=== PATIENT | female | born 1995 | race Caucasian/White ===

== ENCOUNTER 2016-08-18 10:56 | Emergency (ER) | payer OTHER, MEDICAID ==
[~2016-08-18 10:56] MED LIST: PRENCAP17 PO
[2016-08-18 10:58] VITALS: BP 136/73; PULSE 97; RESP 15; TEMP 98.7; O2SAT 98
[2016-08-18 11:08] VITALS: RESP 20
[2016-08-18] MEDS ORDERED: AMOX875T PO (12:23)
--- NOTE | 2016-08-18 12:24 | PD ---
HPI Chief Complaint: ENT Complaint Time Seen by Provider: 11:35 Travel History International Travel<30 days: No Contact w/Intl Traveler<30days: No Traveled to known affect area: No History of Present Illness HPI Is a 21-year-old woman who presents to the emergency department 30 weeks complaining of right ear pain that started today. She'll cough cold congestion symptoms. No fevers. Said trouble with your pain in the past. Symptoms started yesterday. She is not taking anything. She feels otherwise well. History Past Medical History Medical History: Denies Significant Hx : 1 Past Surgical History Surgical History: No Previous Surgery Social History Alcohol Use: No Tobacco Use: No Allergies-Medications (Allergen,Severity, Reaction): Coded Allergies: No Known Allergies (Verified , 08/18/16) Reported Meds & Prescriptions Reported Meds & Active Scripts Active Prenate Mini 29-0.6-0.4-350 mg ( Without A W/ Fe Carbo) 1 Cap Cap 1 Tab PO DAILY Review of Systems Except as stated in HPI: all other systems reviewed are Neg Physical Exam Narrative GENERAL: Well-appearing 21 year-old woman, no acute distress. SKIN: Focused skin assessment warm/dry. HEENT: Right eardrum is erythematous and dull and retracted. Left TMs normal. Throat so some tonsillar hypertrophy but no evidence of exudates or erythema. NECK: No significant adenopathy. HEAD: Atraumatic. Normocephalic. CARDIOVASCULAR: Regular rate and rhythm. No murmur appreciated. RESPIRATORY: No accessory muscle use. Clear to auscultation. Breath sounds equal bilaterally. GASTROINTESTINAL: Abdomen is gravid soft, no tenderness. MUSCULOSKELETAL: No obvious deformities. No edema. NEUROLOGICAL: Awake and alert. No obvious cranial nerve deficits. Motor grossly within normal limits. Normal speech. PSYCHIATRIC: Appropriate mood and affect; insight and judgment normal. Data Data Last Documented VS Vital Signs Date Time Temp Pulse Resp B/P Pulse Ox O2 Delivery O2 Flow Rate FiO2 08/18/16 11:19 18 08/18/16 10:58 98.7 97 136/73 98 MDM Medical Decision Making Medical Screen Exam Complete: Yes Emergency Medical Condition: Yes Differential Diagnosis Effusion, otitis media, other Narrative Course 21 year-old woman with an acute otitis media, looks well. No fevers. She has a viral prodrome with it. This is likely viral. She is 30 weeks . No related symptoms. Recommend watch and wait antibiotics, Tylenol for pain. Diagnosis Primary Impression: Acute otitis media Additional Instructions: Use acetaminophen as needed for pain. Follow with your office rental clerk in the next week. If you're not better in 48 hours, or if you are worsening in the next 24, or if he develop fever, take antibiotic says prescribed. Med/Other Pt SpecificInfo: Prescription(s) given Scripts Amoxicillin 875 Mg Inb345 Mg PO BID 7 Days Ref 0 Prov:Randall Phan MD 08/18/16 Disposition: DISCHARGE HOME Condition: Stable Randall Phan MD August 18, 2016 12:24
[2016-09-08] MEDS ORDERED: PREN1CAP20 (14:37)
[2016-09-22] MEDS ORDERED: CEPH-460 PO (10:08)
== END 2016-08-18 12:29 | disposition home or self-care (01) ==
LOC: NEPD 10:56
DX: H66.91 Otitis media, unspecified, right ear (principal); Z3A.30 30 weeks gestation of pregnancy
CPT/HCPCS: 99283

== ENCOUNTER 2016-10-17 03:16 | Inpatient (IN) | payer OTHER, MEDICAID ==
[2016-10-17] VITALS (31 sets, daily range): BP systolic 97–125; BP diastolic 34–90; PULSE 68–118; RESP 16–20; TEMP 97.4–98.7
[~2016-10-17 03:16] MED LIST changes: +PREN1CAP20; -PRENCAP17 PO
[2016-10-17] MEDS ORDERED: LACTATED RINGER'S 1000 ML INJ 1,000 ML IV SCH (04:09)
[2016-10-17] MEDS ORDERED: LACTATED RINGER'S 1000 ML INJ 1,000 ML IV PRN (04:09)
[2016-10-17] MEDS ORDERED: LIDOCAINE HCL 1% 50 ML VIAL INFIL PRN (04:15)
[2016-10-17] MEDS ORDERED: OXYTOCIN 30 UNITS-500ML PREMIX 500 ML IV ONE (04:15)
[2016-10-17] MEDS ORDERED: MINERAL OIL 10 ML VIAL TOPICAL PRN (04:15)
[2016-10-17] MEDS ORDERED: CITRIC ACID-SODIUM CITRATE LIQ 30 ML UDC PO SCH (04:15)
[2016-10-17] MEDS ORDERED: SODIUM CHLORID 0.9% 500 ML INJ 500 ML IV PRN (04:15)
[2016-10-17] MEDS ORDERED: LIDOCAINE HCL 1% 50 ML VIAL I-DERMAL PRN (04:15)
[2016-10-17] MEDS ORDERED: SODIUM CHLOR 0.9% 1000 ML INJ 1,000 ML IV PRN (04:29)
--- NOTE | 2016-10-17 04:35 | PD ---
HPI Chief Complaint contractions Date Seen: Oct 17, 2016 Time Seen: 04:20 (Preet Sky MD R2) Travel History International Travel<30 Days: No Contact w/Intl Traveler<30Days: No (Preet Sky MD) History of Present Illness HPI 21 year old at 38/1 weeks gestation presents with reported contractions every 5 mins. She has no gush of fluid. She has spotting. No headache, blurry vision, chest pain, shortness of breath, epigastric pain, or new edema. She is GBS negative. She is up to date on care. No complications in this . (Preet Sky MD) History Past Medical History Narrative Medical None (Preet Sky MD) Obstetric History Obstetric History [facility] No complications in Prenatals up to date GBS negative (Preet Sky MD) Past Surgical History Narrative Surgical None (Preet Sky MD) Family History Narrative Family History None significant (Preet Sky MD) Social History Alcohol Use: No Tobacco Use: No Substance Abuse: No (Preet Sky MD) Allergies-Medications (Allergen,Severity, Reaction): Coded Allergies: No Known Allergies (Verified , 10/14/16) Home Meds Reported Medications W/O Vit A W/ Fe Carbo (Prenate Mini 18-0.6-0.4-350 mg)1 Cap Cap 09/08/16 Discontinued Scripts Amoxicillin 500 Mg Rrh368 Mg PO TID #7 CAP Ref 0 Prov:Jack Vasquez MD 10/09/16 Without A W/ Fe Carbo (Prenate Mini 29-0.6-0.4-350 mg)1 Cap Cap1 Tab PO DAILY #30 BOTTLE Ref 11 Prov:Ingrid Sarkar 03/10/16 Review of Systems Except as stated in HPI: all other systems reviewed are Neg (Preet Sky MD R2) Physical Exam Narrative GENERAL: Well-nourished, well-developed patient. SKIN: Warm and dry. HEAD: Normocephalic and atraumatic. EYES: No scleral icterus. No injection or drainage. ENT: No nasal drainage noted. Mucous membranes pink. Airway patent. NECK: Supple, trachea midline. No JVD. CARDIOVASCULAR: Regular rate and rhythm without murmurs, gallops, or rubs. RESPIRATORY: Breath sounds equal bilaterally. No accessory muscle use. ABDOMEN/GI: Abdomen soft, non-tender, bowel sounds present, no rebound, no guarding Gravid to 38 weeks size GENITOURINARY: External Genitalia: intact and normal in appearance Dilatation: 3-4 cm Effacement: 100% Station: -2 Presentation: vertex Membranes: bulging Uterine Contractions: uterine irritability FHT's: Category: 1 Baseline: 130's-140's Reactive: yes Variability: moderate Decels: none EXTREMITIES: No cyanosis or edema. BACK: Nontender without obvious deformity. No CVA tenderness. NEUROLOGICAL: Awake and alert. Motor and sensory grossly within normal limits. Five out of 5 muscle strength in all muscle groups. Normal speech. (Preet Sky MD R2) Data Data Vital Signs Reviewed: Yes Orders Ob (2e) Additional Admit Info (10/17/16 03:55) Admit To Inpatient (10/17/16 ) Code Status (10/17/16 04:09) Vital Signs (Adult) .Per protocol (10/17/16 04:09) Activity Oob Ad Lynnette (10/17/16 04:09) Heart (10/17/16 04:09) Amnioinfusion (10/17/16 04:09) Urinary Catheter Management .ONCE (10/17/16 04:09) Diet Liquid (10/17/16 Breakfast) Lactated Ringer's 1000 Ml Inj (Lr 1000 M (10/17/16 04:09) Lactated Ringer's 1000 Ml Inj (Lr 1000 M (10/17/16 04:09) Sodium Chlorid 0.9% 500 Ml Inj (Ns 500 M (10/17/16 04:15) Sodium Chlor 0.9% 1000 Ml Inj (Ns 1000 M (10/17/16 04:29) Lidocaine 1% Inj (50 Ml) (Xylocaine 1% I (10/17/16 04:15) Citric Acid-Sodium Citrate Liq (Bicitra (10/17/16 04:15) Fentanyl Inj (Fentanyl Inj) (10/17/16 04:15) Fentanyl Inj (Fentanyl Inj) (10/17/16 04:15) Complete Blood Count With Diff (10/17/16 04:09) Hold Clot (10/17/16 04:09) Abo/Rh Blood Type (10/17/16 04:09) Resp Oxygen Non Rebreathe Mask (10/17/16 ) ^ Epidural / Intrathecal Infus (10/17/16 04:09) Oxytocin 30 Units-500ml Premix (Pitocin (10/17/16 04:15) Lidocaine 1% Inj (50 Ml) (Xylocaine 1% I (10/17/16 04:15) Light Mineral Oil (Muri-Lube Oil) (10/17/16 04:15) Inpatient Certification (10/17/16 ) (Preet Sky MD R2) [facility] Medical Record Reviewed: Yes Interpretation(s) 21 year old at 38/1 weeks gestation presents with contractions every 5 mins by report, found to be 3-4 cm dilated, 100% effaced, -2 station, bulging membranes. - Admit to labor and delivery. - Continuous monitoring - Liquid diet now - LR at 125 mls/hr - Fentanyl for pain management - CBC, ABO/RH, Hold clot - Epidural when pain significant Discussed with Dr. Patel (Preet Sky MD R2) Attending Attestation The exam, history, and the medical decision-making described in the above note were completed with the assistance of the resident provider. I reviewed and agree with the findings presented. I attest that I had a [id number] encounter with the patient on the same day, and personally performed and documented my assessment and findings in the medical record. (Luis Armando Patel MD) Preet Sky MD R2 Oct 17, 2016 04:35 Luis Armando Patel MD Oct 17, 2016 04:44
[2016-10-17 05:04] LABS: AUTOMATED NEUTROPHIL # 10.1 TH/MM3 (1.8-7.7); BASOPHIL % 0.3 % (0.0-2.0); EOSINOPHIL % 0.3 % (0.0-4.0); HEMO FLAGS DIFF FINAL; LYMPH % 14.9 % (9.0-44.0); LYMPHOCYTE # 1.9 TH/MM3 (1.0-4.8); MEAN CORPUSCULAR HEMOGLOBIN 29.6 PG (27.0-34.0); MEAN CORPUSCULAR HGB CONC 33.2 % (32.0-36.0); MONO % 6.1 % (0.0-8.0); NEUT % 78.4 % (16.0-70.0); PLATELET COUNT 185 TH/MM3 (150-450); RED BLOOD COUNT 4.16 MIL/MM3 (4.00-5.30); RED CELL DISTRIBUTION WIDTH 13.7 % (11.6-17.2); WHITE BLOOD COUNT 12.9 TH/MM3 (4.0-11.0)
[2016-10-17] MEDS ORDERED: fentaNYL 2MCG-BUPIV 0.125% INJ 100 ML ONE (05:34)
--- NOTE | 2016-10-17 07:32 | PD.LABORPN ---
Subjective Subjective 21 YO at 38/1 weeks in labor, AROM at 0740 hours with clear fluid noted, 8- 9, 100%, 0 station, vertex. Epidural for pain control, GBS neg, with Category 1 tracing. Objective Vital Signs Vital Signs Date Time Temp Pulse Resp B/P Pulse Ox O2 Delivery O2 Flow Rate FiO2 10/17/16 06:45 121/68 10/17/16 06:45 80 10/17/16 06:30 18 10/17/16 06:30 75 119/73 10/17/16 06:15 83 125/83 10/17/16 06:03 76 110/68 10/17/16 06:00 112/71 10/17/16 05:57 74 114/69 10/17/16 05:54 116/76 10/17/16 05:53 118/72 10/17/16 05:50 84 10/17/16 05:45 20 10/17/16 05:43 79 122/77 10/17/16 05:34 20 10/17/16 05:00 20 Objective Pelvic Exam: Cervix: open Dilatation: 8-9 Effacement: 100 Station: 0 Presentation: vtx Membranes: AROM at 0740 hours with clear fluid noted Uterine Contractions: 5 mins apart FHT's: Category: 1 Baseline: 130 Reactive: yes Variability: moderate Decels: 0 Assessment/Plan Assessment and Plan 21 YO laboring with AROM at 0740, 8-9/100/0, vertex with category 1 tracing 1. IUP - Category 1 tracing w/ reassuring FHTs - AFVSS - Justice 5 mins apart - Epidural for pain control - GBS neg - Continue to monitor Bhaskar Dumsa MD R1 Oct 17, 2016 07:32
[2016-10-17] MEDS ORDERED: WITCH HAZEL 50%/GLYCERIN 12.5% 40 PAD JAR TOPICAL PRN (10:30)
[2016-10-17] MEDS ORDERED: ALUMINUM/MAGNESIUM/SIMETH 30 ML CUP PO PRN (10:30)
[2016-10-17] MEDS ORDERED: ZOLPIDEM TARTRATE 5 MG TAB PO PRN (10:30)
[2016-10-17] MEDS ORDERED: ONDANSETRON ODT 4 MG TAB PO PRN (10:30)
[2016-10-17] MEDS ORDERED: BENZOCAINE 20% TOPICAL SPRAY 60 ML CAN TOPICAL PRN (10:30)
[2016-10-17] MEDS ORDERED: DOCUSATE SODIUM 50 MG/SENNA 8.6 MG TAB PO PRN (10:30)
[2016-10-17] MEDS ORDERED: ACETAMINOPHEN 325 MG TAB PO PRN (10:30)
[2016-10-17] MEDS ORDERED: SODIUM CHLORIDE 0.9% FLUSH 10 ML FLUSH IV FLUSH PRN (10:30)
--- NOTE | 2016-10-17 10:38 | PD.OB.DELI ---
Anesthesia: Epidural Episiotomy: None Vaginal Delivery: Normal Presentation: Occiput anterior, Vertex Nuchal Cord: None Delayed cord clamping (45 sec): Yes Infant: Male One Minute : 9 Five Minute : 9 Weight: 3430 grams Placenta: Spontaneous delivery Laceration: Vaginal laceration, 2 deg Repair: Chromic running Additional Information 21 YO G1 now P1 at 38/1 weeks with normal placenta delivery by Dr Dumas. 2nd degree vaginal wall lacerations at 3-5 O'clock and 7-8 o'clock positions repaired with chromic running sutures by Dr Sotelo and assisted by Dr Dumas. EBL 300 cc. (Bhaskar Dumas MD R1) Collaborating MD Comments supervised. Left sidewall laceration repaired by myself with 2-0 chromic. I supervised repair by Dr Dumas of bilateral periurethral lacerations due to bleeding. (Judit Sotelo MD) Bhaskar Dumas MD R1 Oct 17, 2016 10:38 Judit Sotelo MD Oct 17, 2016 17:15
[2016-10-17] MEDS ORDERED: DIPHTH/TETANUS/ACEL PERTUSSIS (BOOSTER) 0.5 ML VIAL/PFS IM ONE (16:00)
[2016-10-17] MEDS ORDERED: MEASLES, MUMPS, RUBELLA VACCINE 0.5 ML VIAL SQ ONE (16:00)
[2016-10-17] MEDS: IBUPROFEN 600 MG TAB PO PRN (21:02)
[2016-10-18] MEDS: IBUPROFEN 600 MG TAB PO PRN ×3 (03:09→20:49)
[2016-10-18 08:30] VITALS: BP 108/67; PULSE 85; RESP 17; TEMP 97.9
--- NOTE | 2016-10-18 08:47 | HHI.OB ---
Subjective Post Day: 1 Remarks day #1. AFVSS overnight. Pain well-controlled. Decreased lochia. Denies dysuria. No breast tenderness. She is feeding the baby via breast. Appetite good. No nausea or vomiting. Endorses flatus. No bowel movement. Ambulating well. Denies calf pain, shortness of breath, or cough. Otherwise, she is doing well this morning and has no other complaints. Objective Vitals/I&O Vital Signs Date Time Temp Pulse Resp B/P Pulse Ox O2 Delivery O2 Flow Rate FiO2 10/18/16 04:09 16 10/17/16 20:00 105/71 10/17/16 20:00 98.7 87 20 10/17/16 12:45 76 16 108/62 10/17/16 12:45 98.6 10/17/16 11:00 20 10/17/16 10:46 118 107/34 10/17/16 10:30 20 10/17/16 10:16 93 114/90 10/17/16 10:15 20 10/17/16 10:00 91 124/80 10/17/16 10:00 20 10/17/16 09:45 71 101/88 10/17/16 09:45 20 10/17/16 09:31 81 106/61 10/17/16 09:30 20 10/17/16 09:30 98.2 10/17/16 09:15 97 118/68 Objective Remarks GENERAL: Well-nourished, well-developed patient. CARDIOVASCULAR: Regular rate and rhythm without murmurs, gallops, or rubs. RESPIRATORY: Breath sounds equal bilaterally. No accessory muscle use. ABDOMEN/GI: Abdomen soft, non-tender. Fundus: Firm, non-tender at umbilicus. GENITOURINARY: Light to moderate bleeding. EXTREMITIES: No cyanosis or edema, non-tender, without signs of DVT. Medications and IVs Current Medications Medications (Trade) Dose Ordered Sig/Amy Route Start Time Stop Time Status Last Admin (NS Flush) 2 ml BID IV FLUSH 10/17/16 21:00 (NS Flush) 2 ml UNSCH PRN IV FLUSH 10/17/16 10:30 (Tylenol) 650 mg Q4H PRN PO 10/17/16 10:30 (Motrin) 600 mg Q6H PRN PO 10/17/16 10:30 10/18/16 03:09 (Americaine 20% Top Spr) 1 spray Q4H PRN TOPICAL 10/17/16 10:30 10/17/16 20:58 (Tucks Pads) 1 applic QID PRN TOPICAL 10/17/16 10:30 10/17/16 20:58 (Huyen-Colace) 2 tab Q12H PRN PO 10/17/16 10:30 (Ambien) 5 mg HS PRN PO 10/17/16 10:30 (Mag-Al Plus Susp Liq) 15 ml Q8H PRN PO 10/17/16 10:30 (Zofran Odt) 4 mg Q6H PRN PO 10/17/16 10:30 Assessment/Plan Assessment and Plan 21y/o who is PPD#1 s/p . -Continue routine care. -Percocet and Motrin PRN pain. -Encouraged OOB. Advised pelvic rest for 6 wks. -Will need a f/u appt. within 6 wks. -D/c in 1-2 more days. dw OB attending Fei Ashford MD R1 Oct 18, 2016 08:47
[2016-10-18] MEDS: SODIUM CHLORIDE 0.9% FLUSH 10 ML FLUSH IV FLUSH SCH ×2 (10:44→21:00)
[2016-10-18 20:45] VITALS: BP 100/60; PULSE 80; RESP 18; TEMP 98.3
[2016-10-19] MEDS ORDERED: IBUP-232 PO (06:40)
[2016-10-19] MEDS ORDERED: SENN1TAB PO (06:40)
--- NOTE | 2016-10-19 06:40 | HHI.DCPOC ---
Discharge Care Plan Diagnosis: (1) Report Symptoms to Your Doctor -Temperature above 100.5 degrees -Redness, of incision or excessive or foul smelling drainage -Unusual pain or calf pain -Increased vaginal bleeding -Painful or difficulty urinating -Feelings of extreme sadness or anxiety after 2 weeks Goals to Promote Your Health * To prevent worsening of your condition and complications * To maintain your health at the optimal level Directions to Meet Your Goals Take your medications as prescribed Follow your dietary instruction Follow activity as directed Ensure plenty of rest for recovery Drink fluids for hydration Keep your appointments as scheduled Take your immunizations and boosters as scheduled If your symptoms worsen call your PCP, if no PCP go to Urgent Care Center or Emergency Room Smoking is Dangerous to Your Health. Avoid second hand smoke Call the 24-hour crisis hotline for domestic abuse at Fei Ashford MD R1 Oct 19, 2016 06:40
--- NOTE | 2016-10-19 07:47 | HHI.OB ---
Subjective Post Day: 2 Remarks day #2. AFVSS overnight. Pain well controlled. Decreased lochia. Denies dysuria. No breast tenderness. She is feeding the baby via breast. Appetite good. No nausea or vomiting. Endorses flatus. No bowel movement. Ambulating well. Denies calf pain, shortness of breath, or cough. Otherwise, she is doing well this morning and has no other complaints. Objective Vitals/I&O Vital Signs Date Time Temp Pulse Resp B/P Pulse Ox O2 Delivery O2 Flow Rate FiO2 10/18/16 20:45 98.3 10/18/16 20:45 80 18 100/60 10/18/16 08:30 97.9 85 17 108/67 Objective Remarks GENERAL: Well-nourished, well-developed patient. CARDIOVASCULAR: Regular rate and rhythm without murmurs, gallops, or rubs. RESPIRATORY: Breath sounds equal bilaterally. No accessory muscle use. ABDOMEN/GI: Abdomen soft, non-tender. Fundus: Firm, non-tender at umbilicus. GENITOURINARY: Light to moderate bleeding. EXTREMITIES: No cyanosis or edema, non-tender, without signs of DVT. Medications and IVs Current Medications Medications (Trade) Dose Ordered Sig/Amy Route Start Time Stop Time Status Last Admin (NS Flush) 2 ml BID IV FLUSH 10/17/16 21:00 10/18/16 10:44 (NS Flush) 2 ml UNSCH PRN IV FLUSH 10/17/16 10:30 (Tylenol) 650 mg Q4H PRN PO 10/17/16 10:30 (Motrin) 600 mg Q6H PRN PO 10/17/16 10:30 10/18/16 20:49 (Americaine 20% Top Spr) 1 spray Q4H PRN TOPICAL 10/17/16 10:30 10/17/16 20:58 (Tucks Pads) 1 applic QID PRN TOPICAL 10/17/16 10:30 10/17/16 20:58 (Huyen-Colace) 2 tab Q12H PRN PO 10/17/16 10:30 10/18/16 20:50 (Ambien) 5 mg HS PRN PO 10/17/16 10:30 (Mag-Al Plus Susp Liq) 15 ml Q8H PRN PO 10/17/16 10:30 (Zofran Odt) 4 mg Q6H PRN PO 10/17/16 10:30 Assessment/Plan Assessment and Plan 21y/o who is PPD#2 s/p . -Continue routine care. -Percocet and Motrin PRN pain. -Encouraged OOB. Advised pelvic rest for 6 wks. -Will need a f/u appt. within 6 wks. -D/c today wdw OB attending Fei Ashford MD R1 Oct 19, 2016 07:47
[2016-10-19 09:00] VITALS: BP 102/69; PULSE 80; RESP 16; TEMP 97.9
== END 2016-10-19 13:14 | disposition home or self-care (01) | DRG 775 ==
LOC: HOBED 03:16 → H2EB 03:56 → H1EA 11:59
PROVIDERS: ADMIT Obstetrics & Gynecology; ATTEND Obstetrics & Gynecology
PROC: 10E0XZZ Delivery of Products of Conception, External Approach (ICD-10-PCS; principal; 2016-10-17)
PROC: 0KQM0ZZ Repair Perineum Muscle, Open Approach (ICD-10-PCS; 2016-10-17)
PROC: 0TQD7ZZ Repair Urethra, Via Natural or Artificial Opening (ICD-10-PCS; 2016-10-17)
PROC: 10907ZC Drainage of Amniotic Fluid, Therapeutic from Products of Conception, Via Natural or Artificial Opening (ICD-10-PCS; 2016-10-17)
DX: O71.4 Obstetric high vaginal laceration alone (principal); Z37.0 Single live birth; O71.82 Other specified trauma to perineum and vulva; Z3A.38 38 weeks gestation of pregnancy
CPT/HCPCS: 85025; 86900; 86901; 90707; 90715; J7120